=== PATIENT | male | born 1955 | race Caucasian/White ===

== ENCOUNTER → 2019-04-05 | Outpatient (CLI) | payer BC ==
--- NOTE | 2019-04-05 12:08 | US ---
EXAMINATION TYPE: US kidneys/renal and bladder DATE OF EXAM: 04/05/2019 COMPARISON: Are 10/06/2015 CLINICAL HISTORY: N20.0 Calculus of kidney. EXAM MEASUREMENTS: Right Kidney: 12.1 x 6.0 x 5.0 cm Left Kidney: 12.4 x 6.4 x 5.4 cm Patient of large body habitus. Right Kidney: lobular, no masses or hydro identified Left Kidney: No hydronephrosis or masses seen Bladder: wnl There is no evidence for hydronephrosis at this point in time. No nephrolithiasis is seen. No indra s are identified. The urinary bladder is anechoic. Bilateral ureteral jets are seen. Cortical medullary differentiation maintained within the kidneys. There is no ascites evident. IMPRESSION: Normal renal ultrasound
== END | disposition home or self-care (01) ==
LOC: RADUSWWP 08:13
PROVIDERS: ATTEND Family Medicine
DX: N20.0 Calculus of kidney (principal)
CPT/HCPCS: 76770